=== PATIENT | female | born 1950 | race Caucasian/White ===

== ENCOUNTER 2017-02-26 14:57 | Emergency (ER) | payer MEDICARE, OTHER ==
--- NOTE | ~2017-02-26 | ER ---
PATIENT'S NAME: YOLANDE MADDOX [facility] AGE: 67 Y [address] ROOM: [place], [place] [address] LOCATION: [facility] ADMIT DATE: 02/26/2017 ER/Outpatient Report DISCHARGE DATE: 02/26/2017 FAMILY PHYSICIAN: Romie Bearden MD ATTENDING PHYSICIAN: Yakov Thomas Time of Arrival: 1455 hours. Time of Evaluation: 1455 hours. CHIEF COMPLAINT: Fall. HISTORY OF PRESENT ILLNESS: The patient states that [place] [employer], walking [place] of the store and she fell and hit the back of her head on the concrete. Incident occurred just prior to arrival. She states the back of her head hurts and she has a bit of a headache. Questionable as to whether, she lost consciousness. Her said if she did, it was just for a brief period of time. The patient reports that she has been seeing Dr. Ruiz lately for some problems with dizziness and unsteady gait. ALLERGIES: MRI DYE. MEDICATIONS: On the chart and reviewed by me. PAST MEDICAL HISTORY: Cvr-[id number]-mpupfjnjj diabetes, chronic pancreatitis, arthritis, depression, overactive bladder, chronic pain issues. PAST SURGERIES: Left knee surgery, cholecystectomy and tonsils. SOCIAL HISTORY: She denies use of tobacco, drugs, or alcohol. Dr. Bearden is her primary provider and she has been seeing Dr. Ruiz. REVIEW OF SYSTEMS: Negative other than those mentioned in the HPI. PHYSICAL EXAMINATION: VITAL SIGNS: She weighed 93 kg. Blood pressure is 156/68, pulse is 69, respirations 20, temperature of 98 tympanic, O2 saturation is 94% on room air. GENERAL: She is awake, alert, and oriented x4. PATIENT'S NAME: YOLANDE MADDOX [facility] AGE: 67 Y [address] ROOM: [place], [place] [address] LOCATION: [facility] ADMIT DATE: 02/26/2017 ER/Outpatient Report DISCHARGE DATE: 02/26/2017 FAMILY PHYSICIAN: Romie Bearden MD ATTENDING PHYSICIAN: Yakov Thomas SKIN: [place], warm, and dry. RESPIRATIONS: Even and nonlabored. Pupils are equal and reactive to light. Extraocular movement is intact. She does have an abrasion to the posterior scalp. TMs are pearly babin. Nasal is clear. Oropharynx is clear. NECK: Supple. No lymphadenopathy. LUNGS: Lung sounds are clear throughout. HEART: Regular rate and rhythm. EXTREMITIES: The patient does walk with a shuffle. DIAGNOSTIC DATA: EKG was completed and showed normal sinus rhythm. CBC is within normal limits. Chem panel is within normal limits. CT of the head and C-spine were completed. Radiologist reports no acute findings. IMPRESSION: Fall, abrasion to the scalp. PLAN: Home, rest. Continue her current medications. Follow up with her primary provider in the next 2 to 3 days. Return to the ER as needed. Her and her verbalized understanding. PEARL UGALDE APRN FOR DO QUINN ESPINO/[place] /[id number] d: 02/26/17 2329 t: 03/01/17 0156, OUTPATIENT REPORT
[2017-02-26 15:23] LABS: BASOPHIL % 0.4 %; EOSINOPHIL % 0.2 %; HEMATOCRIT 40.4 % (33.0-46.0); HEMOGLOBIN 13.4 g/dL (10.0-15.0); IMMATURE GRANULOCYTE % 0.2 %; LYMPHOCYTE # 2.5 K/uL (0.8-4.0); LYMPHOCYTE % 49.3 %; MCH 31.5 pg (27.0-34.0); MCHC 33.2 gm/dL (32.0-36.5); MCV 95.1 fl (83.0-98.0); MONOCYTE # 0.5 K/uL (0.0-1.0); MONOCYTE % 10.5 %; MPV 10.5 fl (9.4-12.4); NEUTROPHIL % 39.4 %; NRBC % 0 /100WBC (0-0.00); PLATELET COUNT 242 K/uL (150-450); RBC 4.25 M/uL (3.50-5.50); WBC 5.2 K/uL (4.0-11.0)
[2017-02-26 15:39] LABS: ALBUMIN 3.6 gm/dL (3.5-5.0); ANION GAP 11.2 (10.0-19.0); CALCIUM 9.2 mg/dL (8.5-10.5); CREATININE 0.9 mg/dL (0.5-1.1); POTASSIUM 4.2 mMol/L (3.7-5.1); TOTAL BILIRUBIN 0.4 mg/dL (0.0-1.5); TOTAL PROTEIN 7.8 g/dL (6.0-8.4)
== END 2017-02-26 15:56 | disposition disaster alternative care site (69) ==
LOC: GACC 14:57
PROVIDERS: Emergency Medicine
DX: S00.01XA Abrasion of scalp, initial encounter (principal); E11.9 Type 2 diabetes mellitus without complications; K86.1 Other chronic pancreatitis; F32.9 Major depressive disorder, single episode, unspecified; Z79.84 Long term (current) use of oral hypoglycemic drugs; Z79.891 Long term (current) use of opiate analgesic; Z79.899 Other long term (current) drug therapy; Z91.041 Radiographic dye allergy status; Z90.49 Acquired absence of other specified parts of digestive tract; Z98.890 Other specified postprocedural states; W18.09XA Striking against other object with subsequent fall, initial encounter; Y92.816 Subway car as the place of occurrence of the external cause
CPT/HCPCS: J7030

== ENCOUNTER → 2017-02-28 | Outpatient (CLI) | payer MEDICARE, OTHER | END | disposition disaster alternative care site (69) | LOC: GAMB 15:07 | DX: I63.9 Cerebral infarction, unspecified (principal); I62.9 Nontraumatic intracranial hemorrhage, unspecified; E10.9 Type 1 diabetes mellitus without complications; R40.20 Unspecified coma | CPT/HCPCS: A0425; A0427; J7030 ==